=== PATIENT | male | born 1935 | race Hispanic/Latino ===

== ENCOUNTER → 2021-02-07 | Outpatient (CLI) | payer OTHER ==
[~2021-02-07] MED LIST: APIX2.5T PO; CARV25TA PO; DIGO0.12 PO; GLIP10TA9 PO; INSLAN SQ; LIRA0.6P SQ; MECL-160 PO; PRAV40TA3 PO; TERA5CAP4 PO; TORS20TA4 PO; [UNRECOGNIZED DRUG - CODE] PO
== END | disposition home or self-care (01) ==
LOC: SHCH 15:27
PROVIDERS: ATTEND Internal Medicine Cardiovascular Disease
DX: I73.9 Peripheral vascular disease, unspecified (principal)
CPT/HCPCS: 93925